=== PATIENT | female | born 1960 | race Caucasian/White ===

== ENCOUNTER 2018-02-02 12:11 | Inpatient (IN) ==
[2018-02-02] MEDS ORDERED: Morphine Sulfate Inj 2 MG/ML Vial IV.PUSH ONE (15:20)
[2018-02-02] MEDS ORDERED: Morphine Inj 4 MG/ML Vial ONE (15:35)
[2018-02-02] MEDS ORDERED: Morphine Inj 4 MG/ML Vial IV.PUSH ONE (15:46)
--- NOTE | 2018-02-02 15:50 | ED ---
HPI General Chief Complaint: Back Pain/Injury Stated Complaint: pelvic pain/post op Time Seen by Provider: 02/02/18 15:14 History of Present Illness HPI Narrative: Patient presents to the emergency department status post fall in her kitchen 5 months ago. States that she could not walk last week and went to [facility] CT scan showed a pelvic fracture and ovarian mass. Ovarian mass was removed last week but stated that she still could not walk. Advised the physician of her hospital that she could not walk with a discharge her in a way per patient. She is complaining of pain bilateral buttocks, 10 out of 10, constant, worse with sitting, no alleviating factors. She denies fever, chills , vomiting, but reports nausea. states ovarian mass was benign. Related Data Home Medications Medication Instructions Recorded Confirmed No Known Home Medications 02/02/18 02/02/18 Previous Rx's Medication Instructions Recorded bisacodyl [Bisac-Evac] 10 mg AL DAILY PRN #15 ea 02/04/18 hydrocodone-acetaminophen 2 tab PO Q4H PRN #40 tab 02/04/18 sennosides-docusate sodium [Senna 2 tab PO BID #120 tab 02/04/18 Plus] Allergies Allergy/AdvReac Type Severity Reaction Status Date / Time No Known Allergies Allergy Unverified 02/02/18 14:27 Review of Systems ROS Unobtainable All other systems reviewed negative except as stated in HPI [facility] Social History Social History Substance History: No History of Abuse Second Hand Smoke Exposure: No Smoking Status: Never smoker How Often Do You Have a Drink Containing Alcohol: Never Recent Travel in [facility] [[email or web address]] within the Last 8 Weeks: No Recent Out of Country Travel within the Last 8 Weeks: No Immunization History Tetanus Immunization: >5 Years Hx Influenza Vaccine This Season: No Exam Narrative Exam Narrative: GENERAL: No acute distress. SKIN: Focused skin assessment warm/dry. HEAD: Atraumatic. Normocephalic. EYES: Pupils equal and round. No scleral icterus. No injection or drainage. ENT: No nasal bleeding or discharge. Mucous membranes pink and moist. NECK: Trachea midline. No JVD. CARDIOVASCULAR: Regular rate and rhythm. No murmur appreciated. RESPIRATORY: No accessory muscle use. Clear to auscultation. Breath sounds equal bilaterally. GASTROINTESTINAL: Abdomen soft, non-tender, nondistended. Hepatic and splenic margins not palpable. MUSCULOSKELETAL: No obvious deformities. No clubbing. No cyanosis. No edema. Bilateral pelvic tenderness, difficulty moving lower extremities bilat secondary to pain but the patient can move her lower extremities. No focal C/T/ L-spine tenderness to palpation. NEUROLOGICAL: Awake and alert. No obvious cranial nerve deficits. Decreased bilateral lower extremity strength secondary to pain.. Normal speech. PSYCHIATRIC: Appropriate mood and affect; insight and judgment normal. Course Initial Documented Vital Signs Temperature 99.3 F 02/02/18 12:24 Pulse Rate 113 H 02/02/18 12:24 Respiratory Rate 16 02/02/18 12:24 Blood Pressure 140/75 02/02/18 12:24 Pulse Oximetry 97 02/02/18 12:24 Last Documented Vital Signs Temperature 98.0 F 02/04/18 23:43 Pulse Rate 80 02/04/18 23:43 Respiratory Rate 18 02/05/18 04:04 Blood Pressure 142/84 H 02/04/18 23:43 Pulse Oximetry 96 02/04/18 23:43 Medical Decision Making MDM Narrative Medical decision making narrative: Patient presents to the emergency department complaining of difficulty walking secondary to pelvic pain. States she was diagnosed with a pelvic fracture. Patient placed on library monitor, continuous pulse ox, IV access obtained. Pelvic x-ray, labs, 2 mg IV morphine ordered. 1816: Dr Costello, Ortho paged. Nothing to do for fractures currently as she wants to know more about ovarian mass (pathologic fracture?). Admit, get med records from [facility]. Differential Diagnosis Differential Diagnosis: Fracture, dislocation, arthritis, Lab Data Result diagrams: 02/04/18 06:53 02/04/18 06:53 Lab Results 02/02/18 02/02/18 02/02/18 Range/Units 15:30 15:40 16:40 WBC 6.5 (4.0-11.0) th/mm3 RBC 2.91 L (4.00-5.30) mil/mm3 Hgb 9.5 L (11.6-15.3) gm/dL Hct 28.5 L (35.0-46.0) % MCV 98.1 (80.0-100.0) fL MCH 32.6 (27.0-34.0) pg MCHC 33.3 (32.0-36.0) % RDW 15.5 (11.6-17.2) % Plt Count 409 (150-450) th/mm3 MPV 7.1 (7.0-11.0) fL Neut % (Auto) 78.4 H (16.0-70.0) % Lymph % (Auto) 12.4 (9.0-44.0) % Hayes % (Auto) 7.5 (0.0-8.0) % Eos % (Auto) 0.9 (0.0-4.0) % Baso % (Auto) 0.8 (0.0-2.0) % Neut # (Auto) 5.1 (1.8-7.7) th/mm3 Lymph # (Auto) 0.8 L (1.0-4.8) th/mm3 Hayes # (Auto) 0.5 (0.0-0.9) th/mm3 Eos # (Auto) 0.1 (0.0-0.4) th/mm3 Baso # (Auto) 0.0 (0.0-0.2) th/mm3 WBC Differential . Differential Comment Auto diff final PT (9.8-11.6) sec INR Ratio Sodium 140 (136-145) meq/L Potassium 3.7 (3.5-5.1) meq/L Chloride 104 (98-107) meq/L Carbon Dioxide 24.1 (21.0-32.0) meq/L Anion Gap 12 (5-15) meq/L BUN 10 (7-18) mg/dL Creatinine 0.35 L (0.50-1.00) mg/dL Estimated GFR Greater than 89 (>89) mL/min POC Glucose (68-110) mg/dl Random Glucose 75 (74-106) mg/dL Hemoglobin A1c (4.3-6.0) % Calcium 8.3 L (8.5-10.1) mg/dL Phosphorus (2.5-4.9) mg/dL Magnesium (1.5-2.5) mg/dL Total Bilirubin 0.6 (0.2-1.0) mg/dL AST 18 (15-37) U/L ALT 26 (10-53) U/L Alkaline Phosphatase 197 H (45-117) U/L Total Protein 5.9 L (6.4-8.2) g/dL Albumin 2.8 L (3.4-5.0) g/dL TSH (0.358-3.740) uIU/mL Free T4 (0.76-1.46) ng/dL Urine Color Rosalina (Yellw/Straw) Urine Clarity Clear (Clear) Urine pH 7.0 (5.0-8.5) Ur Specific [place] 1.012 (1.002-1.035) Urine Protein Negative (Neg-Trace) mg/dL Urine Glucose (UA) Negative (Negative) mg/dL Urine Ketones 20 (Negative) mg/dL Urine Occult Blood Negative (Negative) Urine Nitrate Negative (Negative) Urine Bilirubin Negative (Negative) Urine Urobilinogen Less than 2 (Less than 2) mg/dL Ur Leukocyte Esterase Negative (Negative) Urine RBC 1 (0-3) /hpf Urine WBC 2 (0-5) /hpf Ur Squamous Epith Cells 3 (0-5) /hpf Urine Bacteria Rare H (None) /hpf Urine Mucus Few H (Occasional) /lpf Micro UA Comment Culture not ind Urine Culture Comments Culture not ind 02/03/18 02/03/18 02/04/18 Range/Units 04:26 04:26 06:53 WBC 5.0 6.0 (4.0-11.0) th/mm3 RBC 2.66 L 2.72 L (4.00-5.30) mil/mm3 Hgb 8.5 L 8.9 L (11.6-15.3) gm/dL Hct 25.9 L 26.6 L (35.0-46.0) % MCV 97.3 98.0 (80.0-100.0) fL MCH 32.0 32.6 (27.0-34.0) pg MCHC 32.9 33.3 (32.0-36.0) % RDW 15.8 15.6 (11.6-17.2) % Plt Count 354 373 (150-450) th/mm3 MPV 6.6 L 6.9 L (7.0-11.0) fL Neut % (Auto) 61.0 62.8 (16.0-70.0) % Lymph % (Auto) 22.9 21.7 (9.0-44.0) % Hayes % (Auto) 10.4 H 8.8 H (0.0-8.0) % Eos % (Auto) 4.7 H 6.0 H (0.0-4.0) % Baso % (Auto) 1.0 0.7 (0.0-2.0) % Neut # (Auto) 3.0 3.8 (1.8-7.7) th/mm3 Lymph # (Auto) 1.1 1.3 (1.0-4.8) th/mm3 Hayes # (Auto) 0.5 0.5 (0.0-0.9) th/mm3 Eos # (Auto) 0.2 0.4 (0.0-0.4) th/mm3 Baso # (Auto) 0.0 0.0 (0.0-0.2) th/mm3 WBC Differential . . Differential Comment Auto diff final Auto diff final PT (9.8-11.6) sec INR Ratio Sodium 143 (136-145) meq/L Potassium 3.6 (3.5-5.1) meq/L Chloride 108 H (98-107) meq/L Carbon Dioxide 25.5 (21.0-32.0) meq/L Anion Gap 10 (5-15) meq/L BUN 16 (7-18) mg/dL Creatinine 0.44 L (0.50-1.00) mg/dL Estimated GFR Greater than 89 (>89) mL/min POC Glucose (68-110) mg/dl Random Glucose 114 H (74-106) mg/dL Hemoglobin A1c (4.3-6.0) % Calcium 8.4 L (8.5-10.1) mg/dL Phosphorus (2.5-4.9) mg/dL Magnesium (1.5-2.5) mg/dL Total Bilirubin 0.3 (0.2-1.0) mg/dL AST 15 (15-37) U/L ALT 21 (10-53) U/L Alkaline Phosphatase 183 H (45-117) U/L Total Protein 5.3 L D (6.4-8.2) g/dL Albumin 2.3 L (3.4-5.0) g/dL TSH (0.358-3.740) uIU/mL Free T4 (0.76-1.46) ng/dL Urine Color (Yellw/Straw) Urine Clarity (Clear) Urine pH (5.0-8.5) Ur Specific [place] (1.002-1.035) Urine Protein (Neg-Trace) mg/dL Urine Glucose (UA) (Negative) mg/dL Urine Ketones (Negative) mg/dL Urine Occult Blood (Negative) Urine Nitrate (Negative) Urine Bilirubin (Negative) Urine Urobilinogen (Less than 2) mg/dL Ur Leukocyte Esterase (Negative) Urine RBC (0-3) /hpf Urine WBC (0-5) /hpf Ur Squamous Epith Cells (0-5) /hpf Urine Bacteria (None) /hpf Urine Mucus (Occasional) /lpf Micro UA Comment Urine Culture Comments 02/04/18 02/04/18 02/04/18 Range/Units 06:53 06:53 06:53 WBC (4.0-11.0) th/mm3 RBC (4.00-5.30) mil/mm3 Hgb (11.6-15.3) gm/dL Hct (35.0-46.0) % MCV (80.0-100.0) fL MCH (27.0-34.0) pg MCHC (32.0-36.0) % RDW (11.6-17.2) % Plt Count (150-450) th/mm3 MPV (7.0-11.0) fL Neut % (Auto) (16.0-70.0) % Lymph % (Auto) (9.0-44.0) % Hayes % (Auto) (0.0-8.0) % Eos % (Auto) (0.0-4.0) % Baso % (Auto) (0.0-2.0) % Neut # (Auto) (1.8-7.7) th/mm3 Lymph # (Auto) (1.0-4.8) th/mm3 Hayes # (Auto) (0.0-0.9) th/mm3 Eos # (Auto) (0.0-0.4) th/mm3 Baso # (Auto) (0.0-0.2) th/mm3 WBC Differential Differential Comment PT 9.9 (9.8-11.6) sec INR 1.0 Ratio Sodium 143 (136-145) meq/L Potassium 3.7 (3.5-5.1) meq/L Chloride 108 H (98-107) meq/L Carbon Dioxide 26.1 (21.0-32.0) meq/L Anion Gap 9 (5-15) meq/L BUN 8 (7-18) mg/dL Creatinine 0.37 L (0.50-1.00) mg/dL Estimated GFR Greater than 89 (>89) mL/min POC Glucose (68-110) mg/dl Random Glucose 94 (74-106) mg/dL Hemoglobin A1c 4.2 L (4.3-6.0) % Calcium 8.3 L (8.5-10.1) mg/dL Phosphorus 4.2 (2.5-4.9) mg/dL Magnesium 1.8 (1.5-2.5) mg/dL Total Bilirubin 0.2 (0.2-1.0) mg/dL AST 14 L (15-37) U/L ALT 20 (10-53) U/L Alkaline Phosphatase 200 H (45-117) U/L Total Protein 5.4 L (6.4-8.2) g/dL Albumin 2.5 L (3.4-5.0) g/dL TSH 1.090 (0.358-3.740) uIU/mL Free T4 1.37 (0.76-1.46) ng/dL Urine Color (Yellw/Straw) Urine Clarity (Clear) Urine pH (5.0-8.5) Ur Specific [place] (1.002-1.035) Urine Protein (Neg-Trace) mg/dL Urine Glucose (UA) (Negative) mg/dL Urine Ketones (Negative) mg/dL Urine Occult Blood (Negative) Urine Nitrate (Negative) Urine Bilirubin (Negative) Urine Urobilinogen (Less than 2) mg/dL Ur Leukocyte Esterase (Negative) Urine RBC (0-3) /hpf Urine WBC (0-5) /hpf Ur Squamous Epith Cells (0-5) /hpf Urine Bacteria (None) /hpf Urine Mucus (Occasional) /lpf Micro UA Comment Urine Culture Comments 02/04/18 Range/Units 21:59 WBC (4.0-11.0) th/mm3 RBC (4.00-5.30) mil/mm3 Hgb (11.6-15.3) gm/dL Hct (35.0-46.0) % MCV (80.0-100.0) fL MCH (27.0-34.0) pg MCHC (32.0-36.0) % RDW (11.6-17.2) % Plt Count (150-450) th/mm3 MPV (7.0-11.0) fL Neut % (Auto) (16.0-70.0) % Lymph % (Auto) (9.0-44.0) % Hayes % (Auto) (0.0-8.0) % Eos % (Auto) (0.0-4.0) % Baso % (Auto) (0.0-2.0) % Neut # (Auto) (1.8-7.7) th/mm3 Lymph # (Auto) (1.0-4.8) th/mm3 Hayes # (Auto) (0.0-0.9) th/mm3 Eos # (Auto) (0.0-0.4) th/mm3 Baso # (Auto) (0.0-0.2) th/mm3 WBC Differential Differential Comment PT (9.8-11.6) sec INR Ratio Sodium (136-145) meq/L Potassium (3.5-5.1) meq/L Chloride (98-107) meq/L Carbon Dioxide (21.0-32.0) meq/L Anion Gap (5-15) meq/L BUN (7-18) mg/dL Creatinine (0.50-1.00) mg/dL Estimated GFR (>89) mL/min POC Glucose 206 H (68-110) mg/dl Random Glucose (74-106) mg/dL Hemoglobin A1c (4.3-6.0) % Calcium (8.5-10.1) mg/dL Phosphorus (2.5-4.9) mg/dL Magnesium (1.5-2.5) mg/dL Total Bilirubin (0.2-1.0) mg/dL AST (15-37) U/L ALT (10-53) U/L Alkaline Phosphatase (45-117) U/L Total Protein (6.4-8.2) g/dL Albumin (3.4-5.0) g/dL TSH (0.358-3.740) uIU/mL Free T4 (0.76-1.46) ng/dL Urine Color (Yellw/Straw) Urine Clarity (Clear) Urine pH (5.0-8.5) Ur Specific [place] (1.002-1.035) Urine Protein (Neg-Trace) mg/dL Urine Glucose (UA) (Negative) mg/dL Urine Ketones (Negative) mg/dL Urine Occult Blood (Negative) Urine Nitrate (Negative) Urine Bilirubin (Negative) Urine Urobilinogen (Less than 2) mg/dL Ur Leukocyte Esterase (Negative) Urine RBC (0-3) /hpf Urine WBC (0-5) /hpf Ur Squamous Epith Cells (0-5) /hpf Urine Bacteria (None) /hpf Urine Mucus (Occasional) /lpf Micro UA Comment Urine Culture Comments Imaging Data Radiologist's impression: ITS Impressions Pelvis X-Ray 02/02/18 15:21 CONCLUSION: Negative examination. Pelvis CT 02/02/18 17:08 CONCLUSION: 1. Probable subacute bilateral sacral fractures as well as comminuted displaced fractures of the left superior and inferior pubic rami with ossification of the adjacent soft tissues anteriorly. 2. Probable hematoma/seroma involving left iliacus muscle. 3. Enlarged fibroid uterus. Discharge Plan Discharge Disposition Patient Disposition: 30 Still Patient Discharge Condition Condition: Stable Discharge Order Discharge Orders: Discharge Order (Routine); Ordered 02/04/18 Ordered By: Suleman Broussard Discharge Details Anticipated Discharge Date: 02/04/18 Discharge Comment: DC TO HOME Discharge Problem: Closed pelvic fracture Physicians Team ED Provider: Breanne Sanchez Primary Care Provider: NON STAFF,PROVIDER Attending Provider: Winnie Mcgowan Other Providers: ; James Russ Status ED Status: Left Department Discharge Information Discharge Date/Time: 02/02/18 20:30
--- NOTE | 2018-02-02 15:55 | XR ---
EXAM DATE: 02/02/2018 3:46 PM EDT AGE/SEX: 57 years / Female INDICATIONS: Pain on right side from fall three months ago. CLINICAL DATA: This is the patient's initial encounter. Patient reports that signs and symptoms have been present for 3 months and indicates a pain score of 6/10. MEDICAL/SURGICAL HISTORY: None. None. COMPARISON: No prior exams available for comparison. FINDINGS: Examination of the pelvis demonstrates no evidence of fracture or dislocation. Bony mineralization i s normal. There is no widening of the sacroiliac joints. No foreign body is identified. CONCLUSION: Negative examination. Electronically signed by: Yvan Carlton MD 02/02/2018 3:54 PM EDT
[2018-02-02 16:26] LABS: Baso % (Auto) 0.8 % (0.0-2.0); Eos # (Auto) 0.1 th/mm3 (0.0-0.4); Eos % (Auto) 0.9 % (0.0-4.0); Hematocrit 28.5 % (35.0-46.0); Hemoglobin 9.5 gm/dL (11.6-15.3); Lymph # (Auto) 0.8 th/mm3 (1.0-4.8); Lymph % (Auto) 12.4 % (9.0-44.0); Mean Corpuscular HGB Conc 33.3 % (32.0-36.0); Mean Corpuscular Hemoglobin 32.6 pg (27.0-34.0); Mean Corpuscular Volume 98.1 fL (80.0-100.0); Mean Platelet Volume 7.1 fL (7.0-11.0); Mono # (Auto) 0.5 th/mm3 (0.0-0.9); Mono % (Auto) 7.5 % (0.0-8.0); Neut # (Auto) 5.1 th/mm3 (1.8-7.7); Neut % (Auto) 78.4 % (16.0-70.0); Platelet Count 409 th/mm3 (150-450); Red Blood Count 2.91 mil/mm3 (4.00-5.30); Red Cell Distribution Width 15.5 % (11.6-17.2); White Blood Count 6.5 th/mm3 (4.0-11.0)
[2018-02-02 17:45] LABS: Bacteria,Urine Rare /hpf; Bilirubin,Urine Negative (Negative); Clarity,Urine Clear (Clear); Color,Urine Amber (Yellw/Straw); Glucose,Urine (UA) Negative (Negative); Leukocyte Esterase,Urine Negative (Negative); Mucus,Urine Few /lpf (Occasional); Nitrite,Urine Negative (Negative); Specific Gravity,Urine 1.012 (1.002-1.035); Squamous Epithelial Cell,Urine 3 /hpf (0-5)
[2018-02-02 18:01] LABS: Anion Gap 12 meq/L (5-15); Carbon Dioxide 24.1 meq/L (21.0-32.0); Chloride 104 meq/L (98-107); Potassium 3.7 meq/L (3.5-5.1); Sodium 140 meq/L (136-145)
[2018-02-02 18:02] LABS: Alanine Aminotransferase 26 U/L (10-53); Albumin 2.8 g/dL (3.4-5.0); Alkaline Phosphatase 197 U/L (45-117); Aspartate Aminotransferase 18 U/L (15-37); Blood Urea Nitrogen 10 mg/dL (7-18); Calcium 8.3 mg/dL (8.5-10.1); Glomerular Filtration Rate Greater Than 89 mL/min (>89); Glucose,Random 75 mg/dL (74-106); Total Protein 5.9 g/dL (6.4-8.2)
[2018-02-02] MEDS ORDERED: Bisacodyl 10 MG Supp RECTAL PRN (18:59)
[2018-02-02] MEDS ORDERED: Acetaminophen 325 MG Tablet PO PRN (18:59)
[2018-02-02] MEDS ORDERED: Morphine Sulfate Inj 2 MG/ML Vial IM PRN (19:07)
[2018-02-02] MEDS ORDERED: Morphine Sulfate Inj 2 MG/ML Vial IV.PUSH PRN (19:13)
--- NOTE | 2018-02-02 19:31 | P.HPIM ---
History of Present Illness Primary Care Physician: PROVIDER NON STAFF History of Present Illness: This is a 57-year-old female with a PMH of Ovarian Mass s/p Resection who presented to the ER w/ complaints of inability to ambulate due to pelvic pain. States she is from [place], had fall in her kitchen approx 5mo ago however no obvious injury at that time and did not seek medical attention. Moved here to [facility] few days ago, now w/ progressive worsening of hip pain and inability to walk. Denies new injury or trauma. On arrival, BP 148/82, HR 100, O2 sat 100% RA, Afebrile. Hemoglobin 9.5, no previous labs for comparison. Chemistry essentially unremarkable. UA negative for UTI. Pelvis X-ray with no acute findings. Pelvis CT with probable subacute bilateral sacral fractures and comminuted displaced fractures of the left superior and inferior pubic rami, probable hematoma/seroma left iliopsoas muscle. Ortho consulted by ER physician , plan is for possible surgical intervention. - Diagnosis (1) Pelvic fracture (2) Anemia - Inpatient Certification If this patient has been admitted as an Inpatient: I certify that the inpatient services were ordered in accordance with Medicare regulations governing the order. This includes certification that hospital inpatient services are reasonable and necessary and in the case of services not specified as inpatient-only under 42 CFR 419.22(n), that they are appropriately provided as inpatient services in accordance to with the 2-midnight benchmark under 43 CFR 412.3(e) Estimated Total Length of Stay (Days): 2 Plans for Post Hospital Care: Not yet determined Review of Systems All other systems reviewed negative except as stated in HPI [facility] - History History Provided By: Patient - Medical History Medical History: Medical History (Last Updated 02/02/18 @ 14:32 by Miguel Hall RN) Ovarian mass, left Patient denies medical problems Patient denies medical problems - Surgical History Surgical History: Surgical History (Last Updated 02/02/18 @ 14:32 by Miguel Hall RN) Hx of tonsillectomy - Family History Family History: Family History (Last Updated 02/02/18 @ 14:33 by Miguel Hall RN) Other Patient denies significant medical history - Tobacco History Second Hand Smoke Exposure: No Smoking Status: Never smoker - Alcohol History How Often Do You Have a Drink Containing Alcohol: Never - Substance Use History Substance History: No History of Abuse - Travel History Recent Travel in the [place] Within the Last 8 Weeks: No Recent Travel Out of the Country Within the Last 8 Weeks: No - Immunization History Tetanus Immunization: >5 Years Hx Influenza Vaccine This Season: No Medications and Allergies Active Medications: Active Medications Acetaminophen (Tylenol) 650 mg PO Q4H PRN PRN Reason: PAIN/FEVER Hydrocodone Bitart/Acetaminophen (Evans 5/325) 1 tab PO Q4H PRN PRN Reason: PAIN 3-5 Al Hydroxide/Mg Hydroxide (Milk Of Magnesia Liq) 30 ml PO Q12H PRN PRN Reason: Mild Constipation Bisacodyl (Dulcolax Supp) 10 mg RECTAL DAILY PRN PRN Reason: SEVERE CONSITIPATION Hydromorphone HCl (Dilaudid Pf Inj) 1 mg IV.PUSH Q4H PRN PRN Reason: PAIN 6-10 Sodium Chloride (Ns Inj) 1,000 mls @ 100 mls/hr IV.CONT .Q10H BLAKE Lactulose (Lactulose Liq) 30 ml PO DAILY PRN PRN Reason: SEVERE CONSITIPATION Metoclopramide HCl (Reglan Inj) 5 mg IV.PUSH Q6HR PRN; Protocol PRN Reason: NAUSEA OR VOMITING Senna/Docusate Sodium (Mirna-Colace) 1 tab PO BID BLAKE Sennosides (Senokot) 17.2 mg PO Q12H PRN PRN Reason: Moderate Constipation Allergies Allergy/AdvReac Type Severity Reaction Status Date / Time No Known Allergies Allergy Unverified 02/02/18 14:27 Home Medications Medication Instructions Recorded Confirmed Type cyclobenzaprine 10 mg PO TID PRN 02/02/18 02/02/18 History oxycodone [OxyContin] 10 mg PO Q12H 02/02/18 02/02/18 History Exam Vital signs: Vital Signs 02/02/18 12:24 02/02/18 14:30 02/02/18 16:20 Temperature 99.3 F 98.0 F Pulse Rate 113 H 100 H Respiratory Rate 16 20 17 Blood Pressure 140/75 148/82 H Pulse Oximetry 97 100 02/02/18 17:11 Temperature 97.8 F Pulse Rate 82 Respiratory Rate 16 Blood Pressure 130/78 Pulse Oximetry 98 Intake & Output 02/02/18 02/02/18 02/03/18 06:59 18:59 06:59 Weight 45.3 kg Narrative: PE: GENERAL: Very pleasant middle-aged white female in no acute distress. Suitcase and belongings at bedside. HEENT: PERRLA, EOMI. No scleral icterus or conjunctival pallor. No lid lag or facial droop. CARDIOVASCULAR: Regular rate and rhythm. No obvious murmurs to auscultation. No chest tenderness to palpation. RESPIRATORY: No obvious rhonchi or wheezing. Clear to auscultation. Breath sounds equal bilaterally. GASTROINTESTINAL: Abdomen soft, non-tender, nondistended. BS normal. MUSCULOSKELETAL: Extremities without clubbing, cyanosis, or edema. No obvious deformities. Decreased ROM of bilateral lower extremities due to pain. NEUROLOGICAL: Awake, alert and oriented x4. No focal neurologic deficits. Moving both upper and lower extremities spontaneously. Results - Labs CBC & Chem 7: 02/02/18 15:30 02/02/18 16:40 Labs: Short CBC 02/02/18 Range/Units 15:30 WBC 6.5 (4.0-11.0) th/mm3 Hgb 9.5 L (11.6-15.3) gm/dL Hct 28.5 L (35.0-46.0) % Plt Count 409 (150-450) th/mm3 BMP 02/02/18 16:40 Sodium 140 Potassium 3.7 Chloride 104 Carbon Dioxide 24.1 BUN 10 Creatinine 0.35 L Calcium 8.3 L Liver Function 02/02/18 Range/Units 16:40 Total Bilirubin 0.6 (0.2-1.0) mg/dL AST 18 (15-37) U/L ALT 26 (10-53) U/L Alkaline Phosphatase 197 H (45-117) U/L Albumin 2.8 L (3.4-5.0) g/dL Urine 02/02/18 Range/Units 15:40 Urine Color Rosalina (Yellw/Straw) Urine Clarity Clear (Clear) Urine pH 7.0 (5.0-8.5) Ur Specific [place] 1.012 (1.002-1.035) Urine Protein Negative (Neg-Trace) mg/dL Urine Glucose (UA) Negative (Negative) mg/dL - Imaging Impressions Pelvis X-Ray 02/02/18 15:21 CONCLUSION: Negative examination. Pelvis CT 02/02/18 17:08 CONCLUSION: 1. Probable subacute bilateral sacral fractures as well as comminuted displaced fractures of the left superior and inferior pubic rami with ossification of the adjacent soft tissues anteriorly. 2. Probable hematoma/seroma involving left iliacus muscle. 3. Enlarged fibroid uterus. Caprini VTE Risk Assessment Caprini VTE Risk Assessment: No/Low Risk (score <= 1) Caprini Risk Assessment Model: Point Value = 1 Point Value = 2 Point Value = 3 Point Value = 5 Age 41-60 Minor surgery BMI > 25 kg/m2 Swollen legs Varicose veins or History of unexplained or recurrent spontaneous Oral contraceptives or hormone replacement Sepsis (< 1 month) Serious lung disease, including pneumonia (< 1 month) Abnormal pulmonary function Acute myocardial infarction Congestive heart failure (< 1 month) History of inflammatory bowel disease Medical patient at bed rest Age 61-74 Arthroscopic surgery Major open surgery (> 45 min) Laparoscopic surgery (> 45 min) Malignancy Confined to bed (> 72 hours) Immobilizing plaster cast Central venous access Age >= 75 History of VTE Family history of VTE Factor V Leiden Prothrombin [id number] Lupus anticoagulant Anticardiolipin antibodies Elevated serum homocysteine Heparin-induced thrombocytopenia Other congenital or acquired thrombophilia Stroke (< 1 month) Elective arthroplasty Hip, pelvis, or leg fracture Acute spinal cord injury (< 1 month) Prophylaxis Regimen: Total Risk Factor Score Risk Level Prophylaxis Regimen 0-1 Low Early ambulation 2 Moderate Order ONE of the following: *Sequential Compression Device (SCD) *Heparin 5000 units SQ BID 3-4 Higher Order ONE of the following medications: *Heparin 5000 units SQ TID *Enoxaparin/Lovenox 40 mg SQ daily (WT < 150 kg, CrCl > 30 mL/min) *Enoxaparin/Lovenox 30 mg SQ daily (WT < 150 kg, CrCl > 10-29 mL/min) *Enoxaparin/Lovenox 30 mg SQ BID (WT < 150 kg, CrCl > 30 mL/min) AND/OR *Sequential Compression Device (SCD) 5 or more Highest Order ONE of the following medications: *Heparin 5000 units SQ TID (Preferred with Epidurals) *Enoxaparin/Lovenox 40 mg SQ daily (WT < 150 kg, CrCl > 30 mL/min) *Enoxaparin/Lovenox 30 mg SQ daily (WT < 150 kg, CrCl > 10-29 mL/min) *Enoxaparin/Lovenox 30 mg SQ BID (WT < 150 kg, CrCl > 30 mL/min) AND *Sequential Compression Device (SCD) Assessment and Plan - Assessment (1) Pelvic fracture Code(s): S32.9XXA - Fracture of unspecified parts of lumbosacral spine and pelvis, initial encounter for closed fracture Status: Acute (2) Anemia Code(s): D64.9 - Anemia, unspecified Status: Acute - Plan A/P: 1. Pelvic Fracture: S/p fall approx 5mo ago w/ increased pain and difficulty w / ambulation. Pelvic X-ray w/ no acute findings, CT Pelvis w/ probable subacute bilateral sacral fractures and comminuted displaced fracture of left superior and inferior pubic rami, probable hematoma/seroma of left iliopsoas muscle. Ortho consulted by ER physician, will evaluate for possible intervention. NPO after midnight, analgesics/antiemetics as needed. PT for eval/tx 2. Anemia: Hgb 9.5, no previous labs for comparison, no active bleeding. Monitor closely. Repeat labs in am. 3. DVT Prophylaxis: Anticoagulation post op 4. Social work for dc planning as needed. 5. Case discussed w/ ER physician at length, labs/records/imaging reviewed by me.
[2018-02-02] MEDS: Senna/Docusate Sodium 8.6/50 MG Tablet PO SCH (21:03)
[2018-02-02] MEDS: Sod Chloride 0.9% Inj 1,000 ML IV.CONT SCH (21:11)
[2018-02-03 04:59] LABS: Eos # (Auto) 0.2 th/mm3 (0.0-0.4); Eos % (Auto) 4.7 % (0.0-4.0); Hematocrit 25.9 % (35.0-46.0); Hemoglobin 8.5 gm/dL (11.6-15.3); Lymph # (Auto) 1.1 th/mm3 (1.0-4.8); Lymph % (Auto) 22.9 % (9.0-44.0); Mean Corpuscular HGB Conc 32.9 % (32.0-36.0); Mean Corpuscular Volume 97.3 fL (80.0-100.0); Mean Platelet Volume 6.6 fL (7.0-11.0); Mono # (Auto) 0.5 th/mm3 (0.0-0.9); Mono % (Auto) 10.4 % (0.0-8.0); Platelet Count 354 th/mm3 (150-450); Red Blood Count 2.66 mil/mm3 (4.00-5.30); Red Cell Distribution Width 15.8 % (11.6-17.2)
[2018-02-03 05:19] LABS: Albumin 2.3 g/dL (3.4-5.0); Anion Gap 10 meq/L (5-15); Aspartate Aminotransferase 15 U/L (15-37); Blood Urea Nitrogen 16 mg/dL (7-18); Calcium 8.4 mg/dL (8.5-10.1); Carbon Dioxide 25.5 meq/L (21.0-32.0); Chloride 108 meq/L (98-107); Glomerular Filtration Rate Greater Than 89 mL/min (>89); Glucose,Random 114 mg/dL (74-106); Potassium 3.6 meq/L (3.5-5.1); Sodium 143 meq/L (136-145)
[2018-02-03 05:21] LABS: Alanine Aminotransferase 21 U/L (10-53)
[2018-02-03 05:23] LABS: Alkaline Phosphatase 183 U/L (45-117); Total Protein 5.3 g/dL (6.4-8.2)
[2018-02-03] MEDS: Senna/Docusate Sodium 8.6/50 MG Tablet PO SCH ×2 (08:09→21:14)
[2018-02-03] MEDS: HYDROmorphone PF Inj 2 MG/ML Vial IV.PUSH PRN ×3 (09:35→21:24)
--- NOTE | 2018-02-03 11:29 | P.CONOP ---
[facility] Orthopedics Consult Note - [facility] Consult date: 02/03/18 Consult reason: joint pain Chief complaint: PELVIC FRACTURES Narrative: This is a 57-year-old female with a PMH of Ovarian Mass s/p Resection who presented to the ER w/ complaints of inability to ambulate due to pelvic pain. States she is from [place], had fall in her kitchen approx 5mo ago however no obvious injury at that time and did not seek medical attention. Moved here to [facility] few days ago, now w/ progressive worsening of hip pain and inability to walk. Denies new injury or trauma. On arrival, BP 148/82, HR 100, O2 sat 100% RA, Afebrile. Hemoglobin 9.5, no previous labs for comparison. Pelvis X-ray with no acute findings. Pelvis CT with probable subacute left sacral fractures and comminuted displaced fractures of the left superior and inferior pubic rami. Of note, patient was seen at [facility] last week and diagnosed with subacute pelvic fractures and seen by orthopedist there. Recommendation was for weightbearing as tolerated with outpatient follow-up. In addition, she had her ovarian mass removed which appears to have been nonmalignant. Of note, the orthopedic note from [facility] also makes mention of patient's alcohol abuse and possibility of a fall that may not have been remembered. Review of Systems Denies fevers, chills, nausea, vomiting, chest pain, throat pain, abdominal pain , weakness, numbness or tingling, revision, cough, urinary incontinence, anxiety , rash. Reports pelvis pain with ambulation. PMFSH - History History Provided By: Patient - Medical History Medical History: Medical History (Last Reviewed 02/02/18 @ 21:07 by OG Ziegler) Endometriosis Ovarian mass, left Patient denies medical problems Patient denies medical problems Polycystic disease, ovaries - Surgical History Surgical History: Surgical History (Last Updated 02/02/18 @ 14:32 by Miguel Hall RN) Hx of tonsillectomy - Family History Family History: Family History (Last Updated 02/02/18 @ 14:33 by Miguel Hall RN) Other Patient denies significant medical history - Tobacco History Second Hand Smoke Exposure: No Smoking Status: Never smoker - Alcohol History How Often Do You Have a Drink Containing Alcohol: Never - Substance Use History Substance History: No History of Abuse - Travel History Recent Travel in the [place] Within the Last 8 Weeks: No Recent Travel Out of the Country Within the Last 8 Weeks: No - Immunization History Tetanus Immunization: >5 Years Hx Influenza Vaccine This Season: No Medications and Allergies Active Medications: Active Medications Acetaminophen (Tylenol) 650 mg PO Q4H PRN PRN Reason: FEVER/PAIN 1-2 Hydrocodone Bitart/Acetaminophen ([place] 5/325) 1 tab PO Q4H PRN PRN Reason: PAIN 3-5 Last Admin: 02/03/18 08:07 Dose: 1 tab Al Hydroxide/Mg Hydroxide (Milk Of Magnesia Liq) 30 ml PO Q12H PRN PRN Reason: Mild Constipation Bisacodyl (Dulcolax Supp) 10 mg RECTAL DAILY PRN PRN Reason: SEVERE CONSITIPATION Hydromorphone HCl (Dilaudid Pf Inj) 1 mg IV.PUSH Q4H PRN PRN Reason: PAIN 6-10 Last Admin: 02/03/18 09:35 Dose: 1 mg Sodium Chloride (Ns Inj) 1,000 mls @ 100 mls/hr IV.CONT .Q10H [facility] Last Admin: 02/02/18 21:11 Dose: 100 mls/hr Lactulose (Lactulose Liq) 30 ml PO DAILY PRN PRN Reason: SEVERE CONSITIPATION Metoclopramide HCl (Reglan Inj) 5 mg IV.PUSH Q6HR PRN; Protocol PRN Reason: NAUSEA OR VOMITING Senna/Docusate Sodium (Mirna-Colace) 1 tab PO BID [facility] Last Admin: 02/03/18 08:09 Dose: 1 tab Sennosides (Senokot) 17.2 mg PO Q12H PRN PRN Reason: Moderate Constipation Allergies Allergy/AdvReac Type Severity Reaction Status Date / Time No Known Allergies Allergy Unverified 02/02/18 14:27 Home Medications Medication Instructions Recorded Confirmed Type No Known Home Medications 02/02/18 02/02/18 History Exam Vital signs: Vital Signs 02/02/18 12:24 02/02/18 14:30 02/02/18 16:20 Temperature 99.3 F 98.0 F Pulse Rate 113 H 100 H Respiratory Rate 16 20 17 Blood Pressure 140/75 148/82 H Pulse Oximetry 97 100 02/02/18 17:11 02/02/18 20:50 02/03/18 00:00 Temperature 97.8 F 98.8 F 99.4 F Pulse Rate 82 104 H 108 H Respiratory Rate 16 18 18 Blood Pressure 130/78 155/82 H 101/54 L Pulse Oximetry 98 94 L 93 L 02/03/18 00:31 02/03/18 04:00 02/03/18 04:06 Temperature 99.0 F Pulse Rate 93 H Respiratory Rate 18 18 18 Blood Pressure 117/58 L Pulse Oximetry 94 L 02/03/18 05:59 02/03/18 08:00 Temperature 98.6 F Pulse Rate 84 Respiratory Rate 18 17 Blood Pressure 141/67 H Pulse Oximetry Intake & Output 02/02/18 02/03/18 02/03/18 18:59 06:59 18:59 Weight 45.3 kg 45.3 kg Other: # Voids 2 Date of Last Bowel Movement 02/02/18 02/02/18 Narrative: Awake, alert, in no distress Normocephalic Pupils equal No JVD Moist mucous membranes Soft nontender abdomen Nonlabored respirations Regular rate Bilateral lower extremities: Negative log roll. Patient does have mild pelvic pain with full passive range of motion of the hip. No tenderness to palpation or visible deformities distally. Neurovascularly intact distally. Brisk cap refill. Bilateral upper extremities: No tenderness to patient visible deformities. Full active range of motion and strength throughout. Sensation intact. Brisk cap refill. No rash Normal affect Results - Labs Result Diagrams: 02/03/18 04:26 02/03/18 04:26 Labs: Laboratory Results - last 24 hr 02/02/18 02/02/18 02/02/18 15:30 15:40 16:40 WBC 6.5 RBC 2.91 L Hgb 9.5 L Hct 28.5 L MCV 98.1 MCH 32.6 MCHC 33.3 RDW 15.5 Plt Count 409 MPV 7.1 Neut % (Auto) 78.4 H Lymph % (Auto) 12.4 [place] % (Auto) 7.5 Eos % (Auto) 0.9 Baso % (Auto) 0.8 Neut # (Auto) 5.1 Lymph # (Auto) 0.8 L [place] # (Auto) 0.5 Eos # (Auto) 0.1 Baso # (Auto) 0.0 WBC Differential . Differential Comment Auto diff final Sodium 140 Potassium 3.7 Chloride 104 Carbon Dioxide 24.1 Anion Gap 12 BUN 10 Creatinine 0.35 L Estimated GFR Greater than 89 Random Glucose 75 Calcium 8.3 L Total Bilirubin 0.6 AST 18 ALT 26 Alkaline Phosphatase 197 H Total Protein 5.9 L Albumin 2.8 L Urine Color [place] Urine Clarity Clear Urine pH 7.0 Ur Specific [place] 1.012 Urine Protein Negative Urine Glucose (UA) Negative Urine Ketones 20 Urine Occult Blood Negative Urine Nitrate Negative Urine Bilirubin Negative Urine Urobilinogen Less than 2 Ur Leukocyte Esterase Negative Urine RBC 1 Urine WBC 2 Ur Squamous Epith Cells 3 Urine Bacteria Rare H Urine Mucus Few H Micro UA Comment Culture not ind Urine Culture Comments Culture not ind 02/03/18 02/03/18 04:26 04:26 WBC 5.0 RBC 2.66 L Hgb 8.5 L Hct 25.9 L MCV 97.3 MCH 32.0 MCHC 32.9 RDW 15.8 Plt Count 354 MPV 6.6 L Neut % (Auto) 61.0 Lymph % (Auto) 22.9 [place] % (Auto) 10.4 H Eos % (Auto) 4.7 H Baso % (Auto) 1.0 Neut # (Auto) 3.0 Lymph # (Auto) 1.1 [place] # (Auto) 0.5 Eos # (Auto) 0.2 Baso # (Auto) 0.0 WBC Differential . Differential Comment Auto diff final Sodium 143 Potassium 3.6 Chloride 108 H Carbon Dioxide 25.5 Anion Gap 10 BUN 16 Creatinine 0.44 L Estimated GFR Greater than 89 Random Glucose 114 H Calcium 8.4 L Total Bilirubin 0.3 AST 15 ALT 21 Alkaline Phosphatase 183 H Total Protein 5.3 L D Albumin 2.3 L Urine Color Urine Clarity Urine pH Ur Specific [place] Urine Protein Urine Glucose (UA) Urine Ketones Urine Occult Blood Urine Nitrate Urine Bilirubin Urine Urobilinogen Ur Leukocyte Esterase Urine RBC Urine WBC Ur Squamous Epith Cells Urine Bacteria Urine Mucus Micro UA Comment Urine Culture Comments - Diagnostic results Imaging: Impressions Pelvis X-Ray 02/02/18 15:21 CONCLUSION: Negative examination. Pelvis CT 02/02/18 17:08 CONCLUSION: 1. Probable subacute bilateral sacral fractures as well as comminuted displaced fractures of the left superior and inferior pubic rami with ossification of the adjacent soft tissues anteriorly. 2. Probable hematoma/seroma involving left iliacus muscle. 3. Enlarged fibroid uterus. Assessment and Plan - Assessment and Plan 57-year-old female with subacute pelvic fractures without recent injury Diagnoses and treatment options discussed with the patient. I discussed with the patient that based on her CT, there does appear to be some evidence of healing occurring although slowly. These do not appear to be acute fractures. Most often these fractures can be treated nonoperatively. I do agree with the orthopedic surgeon at [facility] who recommended weightbearing as tolerated with walker. I encouraged the patient to mobilize with physical therapy. No plan for orthopedic surgery at this point. Patient may require placement depending on progress with therapy. Patient to follow-up in my office in 2 weeks.
--- NOTE | 2018-02-03 12:47 | P.PNIM ---
Subjective Interval history: This is a 57-year-old female with a PMH of Ovarian Mass s/p Resection who presented to the ER w/ complaints of inability to ambulate due to pelvic pain. States she is from [place], had fall in her kitchen approx 5mo ago however no obvious injury at that time and did not seek medical attention. Moved here to [facility] few days ago, now w/ progressive worsening of hip pain and inability to walk. Denies new injury or trauma. On arrival, BP 148/82, HR 100, O2 sat 100% RA, Afebrile. Hemoglobin 9.5, no previous labs for comparison. Chemistry essentially unremarkable. UA negative for UTI. Pelvis X-ray with no acute findings. Pelvis CT with probable subacute bilateral sacral fractures and comminuted displaced fractures of the left superior and inferior pubic rami, probable hematoma/seroma left iliopsoas muscle. Ortho consulted by ER physician , plan is for possible surgical intervention. 7-2 PATIENT STILL COMPLAINING OF PAIN ASKING FOR DILAUDID DW RN AND PT AND CM NEEDS PT AND OT ADJUST PAIN MEDS Physical Exam Vital signs: Vital Signs 02/02/18 14:30 02/02/18 16:20 02/02/18 17:11 Temperature 98.0 F 97.8 F Pulse Rate 100 H 82 Respiratory Rate 20 17 16 Blood Pressure 148/82 H 130/78 Pulse Oximetry 100 98 02/02/18 20:50 02/03/18 00:00 02/03/18 00:31 Temperature 98.8 F 99.4 F Pulse Rate 104 H 108 H Respiratory Rate 18 18 18 Blood Pressure 155/82 H 101/54 L Pulse Oximetry 94 L 93 L 02/03/18 04:00 02/03/18 04:06 02/03/18 05:59 Temperature 99.0 F Pulse Rate 93 H Respiratory Rate 18 18 18 Blood Pressure 117/58 L Pulse Oximetry 94 L 02/03/18 08:00 Temperature 98.6 F Pulse Rate 84 Respiratory Rate 17 Blood Pressure 141/67 H Pulse Oximetry Intake & Output 02/02/18 02/03/18 02/03/18 18:59 06:59 18:59 Weight 45.3 kg 45.3 kg Other: # Voids 2 Date of Last Bowel Movement 02/02/18 02/02/18 Narrative: GENERAL: Alert and oriented 3 talkative and cooperative asked for Dilaudid by name SKIN: Warm and dry. HEAD: Atraumatic. Normocephalic. EYES: Pupils equal and round. No scleral icterus. No injection or drainage. ENT: No nasal bleeding or discharge. Mucous membranes pink and moist. NECK: Trachea midline. No JVD. CARDIOVASCULAR: Regular rate and rhythm. S1-S2 no S3 or S4 RESPIRATORY: No accessory muscle use. Clear to auscultation. Breath sounds equal bilaterally. GASTROINTESTINAL: Abdomen soft, non-tender, nondistended. Hepatic and splenic margins not palpable. MUSCULOSKELETAL: Extremities without clubbing, cyanosis, or edema. No obvious deformities. NEUROLOGICAL: Awake and alert. No obvious cranial nerve deficits. Motor grossly within normal limits. 4 out of 5 muscle strength in the arms and decreased and bilateral legs. Normal speech. PSYCHIATRIC: Appropriate mood and affect; insight and judgment normal. Results - Labs CBC & Chem 7: 02/03/18 04:26 02/03/18 04:26 Laboratory Results - last 24 hr 02/02/18 02/02/18 02/02/18 15:30 15:40 16:40 WBC 6.5 RBC 2.91 L Hgb 9.5 L Hct 28.5 L MCV 98.1 MCH 32.6 MCHC 33.3 RDW 15.5 Plt Count 409 MPV 7.1 Neut % (Auto) 78.4 H Lymph % (Auto) 12.4 [place] % (Auto) 7.5 Eos % (Auto) 0.9 Baso % (Auto) 0.8 Neut # (Auto) 5.1 Lymph # (Auto) 0.8 L [place] # (Auto) 0.5 Eos # (Auto) 0.1 Baso # (Auto) 0.0 WBC Differential . Differential Comment Auto diff final Sodium 140 Potassium 3.7 Chloride 104 Carbon Dioxide 24.1 Anion Gap 12 BUN 10 Creatinine 0.35 L Estimated GFR Greater than 89 Random Glucose 75 Calcium 8.3 L Total Bilirubin 0.6 AST 18 ALT 26 Alkaline Phosphatase 197 H Total Protein 5.9 L Albumin 2.8 L Urine Color Rosalina Urine Clarity Clear Urine pH 7.0 Ur Specific [place] 1.012 Urine Protein Negative Urine Glucose (UA) Negative Urine Ketones 20 Urine Occult Blood Negative Urine Nitrate Negative Urine Bilirubin Negative Urine Urobilinogen Less than 2 Ur Leukocyte Esterase Negative Urine RBC 1 Urine WBC 2 Ur Squamous Epith Cells 3 Urine Bacteria Rare H Urine Mucus Few H Micro UA Comment Culture not ind Urine Culture Comments Culture not ind 02/03/18 02/03/18 04:26 04:26 WBC 5.0 RBC 2.66 L Hgb 8.5 L Hct 25.9 L MCV 97.3 MCH 32.0 MCHC 32.9 RDW 15.8 Plt Count 354 MPV 6.6 L Neut % (Auto) 61.0 Lymph % (Auto) 22.9 [place] % (Auto) 10.4 H Eos % (Auto) 4.7 H Baso % (Auto) 1.0 Neut # (Auto) 3.0 Lymph # (Auto) 1.1 [place] # (Auto) 0.5 Eos # (Auto) 0.2 Baso # (Auto) 0.0 WBC Differential . Differential Comment Auto diff final Sodium 143 Potassium 3.6 Chloride 108 H Carbon Dioxide 25.5 Anion Gap 10 BUN 16 Creatinine 0.44 L Estimated GFR Greater than 89 Random Glucose 114 H Calcium 8.4 L Total Bilirubin 0.3 AST 15 ALT 21 Alkaline Phosphatase 183 H Total Protein 5.3 L D Albumin 2.3 L Urine Color Urine Clarity Urine pH Ur Specific [place] Urine Protein Urine Glucose (UA) Urine Ketones Urine Occult Blood Urine Nitrate Urine Bilirubin Urine Urobilinogen Ur Leukocyte Esterase Urine RBC Urine WBC Ur Squamous Epith Cells Urine Bacteria Urine Mucus Micro UA Comment Urine Culture Comments - Imaging Impressions Pelvis X-Ray 02/02/18 15:21 CONCLUSION: Negative examination. Pelvis CT 02/02/18 17:08 CONCLUSION: 1. Probable subacute bilateral sacral fractures as well as comminuted displaced fractures of the left superior and inferior pubic rami with ossification of the adjacent soft tissues anteriorly. 2. Probable hematoma/seroma involving left iliacus muscle. 3. Enlarged fibroid uterus. - Procedures None Assessment and Plan - Assessment (1) Pelvic fracture Code(s): S32.9XXA - Fracture of unspecified parts of lumbosacral spine and pelvis, initial encounter for closed fracture Status: Acute (2) Anemia Code(s): D64.9 - Anemia, unspecified Status: Acute - Plan 1. Pelvic Fracture: S/p fall approx 5mo ago w/ increased pain and difficulty w / ambulation. Pelvic X-ray w/ no acute findings, CT Pelvis w/ probable subacute bilateral sacral fractures and comminuted displaced fracture of left superior and inferior pubic rami, probable hematoma/seroma of left iliopsoas muscle. Ortho consulted by ER physician, will evaluate for possible intervention. NPO after midnight, analgesics/antiemetics as needed. PT for eval/tx 2. Anemia: Hgb 9.5, no previous labs for comparison, no active bleeding. Monitor closely. Repeat labs in am. 3. DVT Prophylaxis: Anticoagulation post op We will consult physical therapy and Occupational Therapy Pain control A.m. labs Code Status: Full code Discussed Condition With: Discussed with RN and patient and case management Discharge Planning: Will probably need outpatient physical therapy and occupational therapy and pain control Progress Note: Quality - VTE Deep Vein Thrombosis/Pulmonary Embolism Present on Admission: No
--- NOTE | 2018-02-03 14:56 | P.DIET ---
Nutritional Evaluation Type of nutrition evaluation: initial Nutrition screening: Weight Loss > 10 lbs Subjective Subjective Comments: Pt reports a good appetite. She also reports unplanned wt loss due to stress. Objective - Diagnosis Fracture, Arthritis - Indications of Malnutrition Classification: Chronic disease or injury-related Malnutrition Characteristics: Weight loss - Objective Body Weight Used for Calculations: IBW Energy Needs - Lower Range (kCal/kg): 33 Energy Needs - Upper Range (kCal/kg): 38 Lower Limit kCal/kg (kCals): 1,799 Upper Limit kCal/kg (kCals): 2,071 Lower Limit Protein Factor (Grams per Kg): 1.1 Upper Limit Protein Factor (Grams per Kg): 1.5 Lower Protein Needs (Protein): 60 Upper Protein Needs (Protein): 82 Fluid Factor (ml/kg): 35 Estimated Fluid Needs (ml): 1,098 Dietitian Reviewed in Medical Record: Current diet, Curent medications, Intake & Output, Labs, Medical history Oral Diet Intake Amount: Excellent 90%+ Objective Comments: Pt's nutritional needs based on IBW (54.5kg). No actual wt available. PMH: Ovarian Mass s/p Resection Labs include: Hgb 8.5, Hct 25.9, Glu 114, Alk Phos 183 Assessment Assessment: Pt at nutritional risk r/t dx, recent wt loss. Need an actual wt to better assess pt. Estimated nutritional needs of pt as assessed above. Her po intake since admission has been 100%. Will provide her with Enlive tid, each bottle contains 350 kcals and 20 gms protein. Will monitor po intake, wt. Recommendations: Regular diet Will add Enlive tid Monitor po intake for adequacy. Dietitian to Monitor: Lab values, Supplement acceptance, Intake & Output, Weight change, PO Intake
[2018-02-04 08:09] LABS: Baso % (Auto) 0.7 % (0.0-2.0); Eos # (Auto) 0.4 th/mm3 (0.0-0.4); Hematocrit 26.6 % (35.0-46.0); Hemoglobin 8.9 gm/dL (11.6-15.3); Lymph # (Auto) 1.3 th/mm3 (1.0-4.8); Lymph % (Auto) 21.7 % (9.0-44.0); Mean Corpuscular HGB Conc 33.3 % (32.0-36.0); Mean Corpuscular Hemoglobin 32.6 pg (27.0-34.0); Mean Platelet Volume 6.9 fL (7.0-11.0); Mono # (Auto) 0.5 th/mm3 (0.0-0.9); Mono % (Auto) 8.8 % (0.0-8.0); Neut # (Auto) 3.8 th/mm3 (1.8-7.7); Neut % (Auto) 62.8 % (16.0-70.0); Platelet Count 373 th/mm3 (150-450); Red Blood Count 2.72 mil/mm3 (4.00-5.30); Red Cell Distribution Width 15.6 % (11.6-17.2)
[2018-02-04 08:11] LABS: Prothrombin Time 9.9 sec (9.8-11.6)
[2018-02-04 08:25] LABS: Alanine Aminotransferase 20 U/L (10-53); Albumin 2.5 g/dL (3.4-5.0); Anion Gap 9 meq/L (5-15); Aspartate Aminotransferase 14 U/L (15-37); Blood Urea Nitrogen 8 mg/dL (7-18); Calcium 8.3 mg/dL (8.5-10.1); Carbon Dioxide 26.1 meq/L (21.0-32.0); Chloride 108 meq/L (98-107); Glomerular Filtration Rate Greater Than 89 mL/min (>89); Glucose,Random 94 mg/dL (74-106); Magnesium 1.8 mg/dL (1.5-2.5); Potassium 3.7 meq/L (3.5-5.1); Sodium 143 meq/L (136-145)
[2018-02-04 08:34] LABS: Alkaline Phosphatase 200 U/L (45-117); Free T4 (Free Thyroxine) 1.37 ng/dL (0.76-1.46); Phosphorus 4.2 mg/dL (2.5-4.9); Total Protein 5.4 g/dL (6.4-8.2)
[2018-02-04] MEDS: Senna/Docusate Sodium 8.6/50 MG Tablet PO SCH ×2 (08:43→21:55)
[2018-02-04] MEDS: Sod Chloride 0.9% Inj 1,000 ML IV.CONT SCH (11:20)
--- NOTE | 2018-02-04 12:16 | P.PNIM ---
Subjective Interval history: This is a 57-year-old female with a PMH of Ovarian Mass s/p Resection who presented to the ER w/ complaints of inability to ambulate due to pelvic pain. States she is from [place], had fall in her kitchen approx 5mo ago however no obvious injury at that time and did not seek medical attention. Moved here to [facility] few days ago, now w/ progressive worsening of hip pain and inability to walk. Denies new injury or trauma. On arrival, BP 148/82, HR 100, O2 sat 100% RA, Afebrile. Hemoglobin 9.5, no previous labs for comparison. Chemistry essentially unremarkable. UA negative for UTI. Pelvis X-ray with no acute findings. Pelvis CT with probable subacute bilateral sacral fractures and comminuted displaced fractures of the left superior and inferior pubic rami, probable hematoma/seroma left iliopsoas muscle. Ortho consulted by ER physician , plan is for possible surgical intervention. 7-2 PATIENT STILL COMPLAINING OF PAIN ASKING FOR DILAUDID DW RN AND PT AND CM NEEDS PT AND OT ADJUST PAIN MEDS 7-3 TOLERATING PO PAIN MEDS DW RN AND PT HAS FRONT WHEELED WALKER CAN HAVE Physical Exam Vital signs: Vital Signs 02/03/18 12:55 02/03/18 16:21 02/03/18 20:00 Temperature 98.6 F 98.5 F Pulse Rate 87 85 Respiratory Rate 20 20 16 Blood Pressure 139/74 142/67 H Pulse Oximetry 97 98 02/04/18 00:00 02/04/18 04:00 Temperature 98.4 F 98.4 F Pulse Rate 87 87 Respiratory Rate 16 16 Blood Pressure 165/81 H Pulse Oximetry 96 Intake & Output 02/03/18 02/04/18 02/04/18 18:59 06:59 18:59 Intake Total 480 / 480 1000 / 1000 Balance 480 / 480 1000 / 1000 Intake: IV 1000 / 1000 NS Inj 1,000 ML @ 100 mls/hr IV 1000 / 1000 .CONT .Q10H [facility] Rx#:[id number] Oral 480 / 480 Other: # Voids 3 Date of Last Bowel Movement 02/02/18 02/02/18 Narrative: GENERAL: Alert and oriented 3 talkative and cooperative asked for Dilaudid by name SKIN: Warm and dry. HEAD: Atraumatic. Normocephalic. EYES: Pupils equal and round. No scleral icterus. No injection or drainage. ENT: No nasal bleeding or discharge. Mucous membranes pink and moist. NECK: Trachea midline. No JVD. CARDIOVASCULAR: Regular rate and rhythm. S1-S2 no S3 or S4 RESPIRATORY: No accessory muscle use. Clear to auscultation. Breath sounds equal bilaterally. GASTROINTESTINAL: Abdomen soft, non-tender, nondistended. Hepatic and splenic margins not palpable. MUSCULOSKELETAL: Extremities without clubbing, cyanosis, or edema. No obvious deformities. NEUROLOGICAL: Awake and alert. No obvious cranial nerve deficits. Motor grossly within normal limits. 4 out of 5 muscle strength in the arms and decreased and bilateral legs. Normal speech. PSYCHIATRIC: Appropriate mood and affect; insight and judgment normal. Results - Labs CBC & Chem 7: 02/04/18 06:53 02/04/18 06:53 Laboratory Results - last 24 hr 02/04/18 02/04/18 02/04/18 06:53 06:53 06:53 WBC 6.0 RBC 2.72 L Hgb 8.9 L Hct 26.6 L MCV 98.0 MCH 32.6 MCHC 33.3 RDW 15.6 Plt Count 373 MPV 6.9 L Neut % (Auto) 62.8 Lymph % (Auto) 21.7 [place] % (Auto) 8.8 H Eos % (Auto) 6.0 H Baso % (Auto) 0.7 Neut # (Auto) 3.8 Lymph # (Auto) 1.3 [place] # (Auto) 0.5 Eos # (Auto) 0.4 Baso # (Auto) 0.0 WBC Differential . Differential Comment Auto diff final PT 9.9 INR 1.0 Sodium 143 Potassium 3.7 Chloride 108 H Carbon Dioxide 26.1 Anion Gap 9 BUN 8 Creatinine 0.37 L Estimated GFR Greater than 89 Random Glucose 94 Calcium 8.3 L Phosphorus 4.2 Magnesium 1.8 Total Bilirubin 0.2 AST 14 L ALT 20 Alkaline Phosphatase 200 H Total Protein 5.4 L Albumin 2.5 L TSH 1.090 Free T4 1.37 - Procedures None Assessment and Plan - Assessment (1) Pelvic fracture Code(s): S32.9XXA - Fracture of unspecified parts of lumbosacral spine and pelvis, initial encounter for closed fracture Status: Acute (2) Anemia Code(s): D64.9 - Anemia, unspecified Status: Acute - Plan 1. Pelvic Fracture: S/p fall approx 5mo ago w/ increased pain and difficulty w / ambulation. Pelvic X-ray w/ no acute findings, CT Pelvis w/ probable subacute bilateral sacral fractures and comminuted displaced fracture of left superior and inferior pubic rami, probable hematoma/seroma of left iliopsoas muscle. Ortho consulted by ER physician, will evaluate for possible intervention. NPO after midnight, analgesics/antiemetics as needed. PT for eval/tx-- NO SURGERY PER ORTHO FRONT WHEELED WALKER 2. Anemia: Hgb 9.5, no previous labs for comparison, no active bleeding. Monitor closely. Repeat labs in am. 3. DVT Prophylaxis: Anticoagulation post op We will consult physical therapy and Occupational Therapy Pain control DC TO HOME TODAY OUTPT PT Code Status: FULL Discussed Condition With: RN AND PT AND CM Discharge Planning: DC HOME OUTPT PT
--- NOTE | 2018-02-04 12:31 | P.DS ---
Date of admission: 02/02/18 19:02 Primary care physician: PROVIDER NON STAFF Attending physician on discharge: Suleman Broussard Anticipated date of discharge: 02/04/18 Brief History from admission: This is a 57-year-old female with a PMH of Ovarian Mass s/p Resection who presented to the ER w/ complaints of inability to ambulate due to pelvic pain. States she is from [place], had fall in her kitchen approx 5mo ago however no obvious injury at that time and did not seek medical attention. Moved here to [facility] few days ago, now w/ progressive worsening of hip pain and inability to walk. Denies new injury or trauma. On arrival, BP 148/82, HR 100, O2 sat 100% RA, Afebrile. Hemoglobin 9.5, no previous labs for comparison. Chemistry essentially unremarkable. UA negative for UTI. Pelvis X-ray with no acute findings. Pelvis CT with probable subacute bilateral sacral fractures and comminuted displaced fractures of the left superior and inferior pubic rami, probable hematoma/seroma left iliopsoas muscle. Ortho consulted by ER physician , plan is for possible surgical intervention. DS: Diagnosis - Discharge Diagnosis (1) Pelvic fracture Status: Acute (2) Anemia Status: Acute DS: Medications - Discharge Medications Prescriptions: bisacodyl [Bisac-Evac] 10 mg MI DAILY PRN #15 ea PRN Reason: Severe Consitipation hydrocodone-acetaminophen 2 tab PO Q4H PRN #40 tab PRN Reason: Acute Pain sennosides-docusate sodium [Senna Plus] 2 tab PO BID #120 tab DS: Summary Hospital Course: This is a 57-year-old female with a PMH of Ovarian Mass s/p Resection who presented to the ER w/ complaints of inability to ambulate due to pelvic pain. States she is from [place], had fall in her kitchen approx 5mo ago however no obvious injury at that time and did not seek medical attention. Moved here to [facility] few days ago, now w/ progressive worsening of hip pain and inability to walk. Denies new injury or trauma. On arrival, BP 148/82, HR 100, O2 sat 100% RA, Afebrile. Hemoglobin 9.5, no previous labs for comparison. Chemistry essentially unremarkable. UA negative for UTI. Pelvis X-ray with no acute findings. Pelvis CT with probable subacute bilateral sacral fractures and comminuted displaced fractures of the left superior and inferior pubic rami, probable hematoma/seroma left iliopsoas muscle. Ortho consulted by ER physician , plan is for possible surgical intervention. 7-2 PATIENT STILL COMPLAINING OF PAIN ASKING FOR DILAUDID DW RN AND PT AND CM NEEDS PT AND OT ADJUST PAIN MEDS 7-3 TOLERATING PO PAIN MEDS DW RN AND PT HAS FRONT WHEELED WALKER CAN HAVE OUTPT PT AND PAIN CONTROL checked eforcse recently given rx from [facility] BUT HAS ACUTE PAIN STILL WILL PRESCRIBE RX FOR PAIN - Time Spent with Patient Total time spent providing and/or coordinating discharge services: 34 Greater than 30 minutes - Quality: VTE Deep Vein Thrombosis/Pulmonary Embolism Present on Admission: No Exam Vital signs: Vital Signs 02/03/18 12:55 02/03/18 16:21 02/03/18 20:00 Temperature 98.6 F 98.5 F Pulse Rate 87 85 Respiratory Rate 20 20 16 Blood Pressure 139/74 142/67 H Pulse Oximetry 97 98 02/04/18 00:00 02/04/18 04:00 Temperature 98.4 F 98.4 F Pulse Rate 87 87 Respiratory Rate 16 16 Blood Pressure 165/81 H Pulse Oximetry 96 Intake & Output 02/03/18 02/04/18 02/04/18 18:59 06:59 18:59 Intake Total 480 / 480 1000 / 1000 Balance 480 / 480 1000 / 1000 Intake: IV 1000 / 1000 NS Inj 1,000 ML @ 100 mls/hr IV 1000 / 1000 .CONT .Q10H BLAKE Rx#:[id number] Oral 480 / 480 Other: # Voids 3 Date of Last Bowel Movement 02/02/18 02/02/18 Narrative: GENERAL: Alert and oriented 3 talkative and cooperative asked for Dilaudid by name SKIN: Warm and dry. HEAD: Atraumatic. Normocephalic. EYES: Pupils equal and round. No scleral icterus. No injection or drainage. ENT: No nasal bleeding or discharge. Mucous membranes pink and moist. NECK: Trachea midline. No JVD. CARDIOVASCULAR: Regular rate and rhythm. S1-S2 no S3 or S4 RESPIRATORY: No accessory muscle use. Clear to auscultation. Breath sounds equal bilaterally. GASTROINTESTINAL: Abdomen soft, non-tender, nondistended. Hepatic and splenic margins not palpable. MUSCULOSKELETAL: Extremities without clubbing, cyanosis, or edema. No obvious deformities. NEUROLOGICAL: Awake and alert. No obvious cranial nerve deficits. Motor grossly within normal limits. 4 out of 5 muscle strength in the arms and decreased and bilateral legs. Normal speech. PSYCHIATRIC: Appropriate mood and affect; insight and judgment normal. Results Procedures completed during hospitalization: None Labs on day of discharge: Labs from last 24 hours 02/04/18 02/04/18 02/04/18 06:53 06:53 06:53 WBC RBC Hgb Hct MCV MCH MCHC RDW Plt Count MPV Neut % (Auto) Lymph % (Auto) [place] % (Auto) Eos % (Auto) Baso % (Auto) Neut # (Auto) Lymph # (Auto) [place] # (Auto) Eos # (Auto) Baso # (Auto) WBC Differential Differential Comment PT 9.9 INR 1.0 Sodium 143 Potassium 3.7 Chloride 108 H Carbon Dioxide 26.1 Anion Gap 9 BUN 8 Creatinine 0.37 L Estimated GFR Greater than 89 Random Glucose 94 Hemoglobin A1c Pending Calcium 8.3 L Phosphorus 4.2 Magnesium 1.8 Total Bilirubin 0.2 AST 14 L ALT 20 Alkaline Phosphatase 200 H Total Protein 5.4 L Albumin 2.5 L TSH 1.090 Free T4 1.37 02/04/18 06:53 WBC 6.0 RBC 2.72 L Hgb 8.9 L Hct 26.6 L MCV 98.0 MCH 32.6 MCHC 33.3 RDW 15.6 Plt Count 373 MPV 6.9 L Neut % (Auto) 62.8 Lymph % (Auto) 21.7 [place] % (Auto) 8.8 H Eos % (Auto) 6.0 H Baso % (Auto) 0.7 Neut # (Auto) 3.8 Lymph # (Auto) 1.3 [place] # (Auto) 0.5 Eos # (Auto) 0.4 Baso # (Auto) 0.0 WBC Differential . Differential Comment Auto diff final PT INR Sodium Potassium Chloride Carbon Dioxide Anion Gap BUN Creatinine Estimated GFR Random Glucose Hemoglobin A1c Calcium Phosphorus Magnesium Total Bilirubin AST ALT Alkaline Phosphatase Total Protein Albumin TSH Free T4 - Impressions ITS Impressions Pelvis X-Ray 02/02/18 15:21 CONCLUSION: Negative examination. Pelvis CT 02/02/18 17:08 CONCLUSION: 1. Probable subacute bilateral sacral fractures as well as comminuted displaced fractures of the left superior and inferior pubic rami with ossification of the adjacent soft tissues anteriorly. 2. Probable hematoma/seroma involving left iliacus muscle. 3. Enlarged fibroid uterus. Discharge Plan - Discharge Disposition Patient Disposition: 01 Discharge Home - Discharge Condition Condition: Stable - Discharge Order Discharge Orders: Discharge Order (Routine); Ordered 02/04/18 Ordered By: Suleman Broussard - Discharge Details Anticipated Discharge Date: 02/04/18 Discharge Comment: DC TO HOME - Physicians Team Primary Care Provider: NON STAFF,PROVIDER Attending Provider: Suleman Broussard
[2018-02-04 17:41] LABS: Hemoglobin A1c 4.2 % (4.3-6.0)
[2018-02-05] MEDS: Senna/Docusate Sodium 8.6/50 MG Tablet PO SCH ×2 (08:21→20:05)
[2018-02-05] MEDS ORDERED: Naloxone Inj 0.4 MG/ML Vial IV.PUSH PRN (14:12)
--- NOTE | 2018-02-05 14:15 | P.PNIM ---
Subjective Interval history: Reports that she has no where to go. She still in a lot of pain. Does not want to go home today. She woke up with her boyfriend and has no place to go. She is looking at her friend in [place]. Physical Exam Vital signs: Vital Signs 02/04/18 16:00 02/04/18 19:46 02/04/18 20:12 Temperature 97.3 F L 98.7 F Pulse Rate 64 89 Respiratory Rate 19 18 Blood Pressure 148/86 H 145/83 H Pulse Oximetry 98 96 02/04/18 23:43 02/05/18 04:04 02/05/18 08:00 Temperature 98.0 F 98.5 F Pulse Rate 80 83 Respiratory Rate 18 18 16 Blood Pressure 142/84 H 159/81 H Pulse Oximetry 96 Intake & Output 02/04/18 02/05/18 02/05/18 18:59 06:59 18:59 Intake Total 1000 / 1000 720 / 720 Balance 1000 / 1000 720 / 720 Weight 48.6 kg Intake: IV 1000 / 1000 NS Inj 1,000 ML @ 100 mls/hr IV 1000 / 1000 .CONT .Q10H BLAKE Rx#:[id number] Oral 720 / 720 Other: # Voids 3 Date of Last Bowel Movement 02/02/18 02/04/18 02/05/18 # Bowel Movements 0 Narrative: GENERAL: This is a well-nourished, thin well-developed patient, in no apparent distress. CARDIOVASCULAR: Regular rate and rhythm without murmurs, gallops, or rubs. RESPIRATORY: Clear to auscultation. Breath sounds equal bilaterally. No wheezes , rales, or rhonchi. \ MUSCULOSKELETAL: Extremities without clubbing, cyanosis, or edema. NEURO: Alert & Oriented x4 to person, place, time, situation. Moves all ext x4 Results - Labs CBC & Chem 7: 02/04/18 06:53 02/04/18 06:53 Laboratory Results - last 24 hr 02/04/18 02/04/18 06:53 21:59 POC Glucose 206 H Hemoglobin A1c 4.2 L - Procedures None Assessment and Plan - Assessment (1) Pelvic fracture Code(s): S32.9XXA - Fracture of unspecified parts of lumbosacral spine and pelvis, initial encounter for closed fracture Status: Acute (2) Anemia Code(s): D64.9 - Anemia, unspecified Status: Acute - Plan 1. Subacute Pelvic Fracture with probable hematoma seroma of left psoas muscle : S/p fall approx 5mo ago w/ increased pain and difficulty w/ ambulation. Pelvic X-ray w/ no acute findings, CT Pelvis w/ probable subacute bilateral sacral fractures and comminuted displaced fracture of left superior and inferior pubic rami, probable hematoma/seroma of left iliopsoas muscle. Ortho consulted by ER physician, will evaluate for possible intervention. Change pain medication from [place] to Percocet chronic 2. Anemia: Hgb 9.5, no previous labs for comparison, no active bleeding. Monitor closely. Repeat labs in am. 3. DVT Prophylaxis: Xarelto Discharge Planning: Patient refused to be discharged due to continued pain Discharge planning with wheeled front wheel walker
[2018-02-05] MEDS: oxyCODONE/Acetaminophen 10/325 Tablet PO PRN ×2 (14:45→21:30)
[2018-02-05] MEDS: Rivaroxaban 10 MG Tablet PO SCH (14:48)
[2018-02-06] MEDS: oxyCODONE/Acetaminophen 10/325 Tablet PO PRN ×3 (05:44→19:54)
[2018-02-06] MEDS: Senna/Docusate Sodium 8.6/50 MG Tablet PO SCH ×2 (08:11→20:00)
[2018-02-06] MEDS: Rivaroxaban 10 MG Tablet PO SCH (08:11)
--- NOTE | 2018-02-06 09:19 | P.PNIM ---
Subjective Interval history: Patient still reporting a 10 out of 10 in pain intensity with her her pelvis. She states that she is not trying to milk the system. Physical Exam Vital signs: Vital Signs 02/05/18 12:00 02/05/18 16:00 02/05/18 20:29 Temperature 98.8 F 98.7 F 97.9 F Pulse Rate 95 H 84 Respiratory Rate 16 16 18 Blood Pressure 133/71 135/79 135/78 Pulse Oximetry 97 96 95 02/05/18 23:24 02/06/18 03:55 02/06/18 08:00 Temperature 97.6 F 97.9 F 98.0 F Pulse Rate 89 101 H 98 H Respiratory Rate 18 18 17 Blood Pressure 162/81 H 160/88 H 151/79 H Pulse Oximetry 98 97 97 Intake & Output 02/05/18 02/06/18 02/06/18 18:59 06:59 18:59 Intake Total 2760 / 2760 480 / 480 Balance 2760 / 2760 480 / 480 Weight 48.6 kg Intake: Oral 2760 / 2760 480 / 480 Other: # Voids 4 Date of Last Bowel Movement 02/05/18 02/06/18 02/05/18 # Bowel Movements 1 Narrative: GENERAL: This is a well-nourished, thin well-developed patient, in no apparent distress. CARDIOVASCULAR: Regular rate and rhythm RESPIRATORY: Clear to auscultation. Breath sounds equal bilaterally. No wheezes , rales, or rhonchi. MUSCULOSKELETAL: Extremities without clubbing, cyanosis, or edema. NEURO: Alert & Oriented x4 to person, place, time, situation. Moves all ext x4 Results - Labs CBC & Chem 7: 02/04/18 06:53 02/04/18 06:53 - Procedures None Assessment and Plan - Assessment (1) Pelvic fracture Code(s): S32.9XXA - Fracture of unspecified parts of lumbosacral spine and pelvis, initial encounter for closed fracture Status: Acute (2) Anemia Code(s): D64.9 - Anemia, unspecified Status: Acute - Plan 1. Subacute closed displaced pelvic Fracture with probable hematoma seroma of left psoas muscle: S/p fall approx 5mo ago w/ increased pain and difficulty w/ ambulation. Pelvic X-ray w/ no acute findings, CT Pelvis w/ probable subacute bilateral sacral fractures and comminuted displaced fracture of left superior and inferior pubic rami, probable hematoma/seroma of left iliopsoas muscle. Ortho consulted and recommended conservative management and nonsurgical. Continue pain medication with Percocet. Add gabapentin to the regimen. 2. Anemia: Hemoglobin has remained stable, last hemoglobin 8.9 3. DVT Prophylaxis: Xarelto Discharge Planning: Patient refused to be discharged due to continued pain Discharge planning with wheeled front wheel walker (1) Pelvic fracture Qualifiers: Encounter type: initial encounter Pelvic bone location: pubis Fracture type : closed Fracture alignment: displaced Laterality: left Qualified Code(s): S32.502A - Unspecified fracture of left pubis, initial encounter for closed fracture
[2018-02-06] MEDS: Gabapentin 100 MG Capsule PO SCH ×2 (13:01→17:05)
[2018-02-07] MEDS: Rivaroxaban 10 MG Tablet PO SCH (09:03)
[2018-02-07] MEDS: Senna/Docusate Sodium 8.6/50 MG Tablet PO SCH ×2 (09:03→21:32)
[2018-02-07] MEDS: Gabapentin 100 MG Capsule PO SCH (09:03)
[2018-02-07] MEDS: oxyCODONE/Acetaminophen 10/325 Tablet PO PRN ×3 (09:03→22:40)
--- NOTE | 2018-02-07 09:22 | P.PNIM ---
Subjective Interval history: Patient states that she plans to be going home on Saturday. She is still waiting for her appeal. She states that there is a friend from [place] will come help her travel. She states that her pain is better with gabapentin Physical Exam Vital signs: Vital Signs 02/06/18 12:00 02/06/18 13:31 02/06/18 16:00 Temperature 98.1 F 98.0 F Pulse Rate 101 H 99 H Respiratory Rate 19 18 17 Blood Pressure 136/84 150/87 H Pulse Oximetry 94 L 96 02/06/18 20:15 02/07/18 00:00 02/07/18 04:00 Temperature 98.4 F 98.2 F 98.0 F Pulse Rate 97 H 74 88 Respiratory Rate 16 16 16 Blood Pressure 138/81 136/71 133/73 Pulse Oximetry 95 97 97 02/07/18 08:00 Temperature 98.3 F Pulse Rate 101 H Respiratory Rate 18 Blood Pressure 151/76 H Pulse Oximetry 95 Intake & Output 02/06/18 02/07/18 02/07/18 18:59 06:59 18:59 Intake Total 1100 / 1100 720 / 720 Balance 1100 / 1100 720 / 720 Intake: Oral 1100 / 1100 720 / 720 Other: # Voids 4 2 Date of Last Bowel Movement 02/05/18 02/05/18 # Bowel Movements 0 Narrative: GENERAL: This is a well-nourished, thin well-developed patient, in no apparent distress. CARDIOVASCULAR: Regular rate and rhythm Lungs: Overall clear to auscultation bilaterally no wheezes, rales, or rhonchi. MUSCULOSKELETAL: Extremities without clubbing, cyanosis, or edema. NEURO: Alert & Oriented x4 to person, place, time, situation. Moves all ext x4 Results - Labs CBC & Chem 7: 02/04/18 06:53 02/04/18 06:53 - Procedures None Assessment and Plan - Assessment (1) Pelvic fracture Code(s): S32.9XXA - Fracture of unspecified parts of lumbosacral spine and pelvis, initial encounter for closed fracture Status: Acute (2) Anemia Code(s): D64.9 - Anemia, unspecified Status: Acute - Plan 1. Subacute closed displaced pelvic Fracture with probable hematoma seroma of left psoas muscle: S/p fall approx 5mo ago w/ increased pain and difficulty w/ ambulation. Pelvic X-ray w/ no acute findings, CT Pelvis w/ probable subacute bilateral sacral fractures and comminuted displaced fracture of left superior and inferior pubic rami, probable hematoma/seroma of left iliopsoas muscle. Ortho consulted and recommended conservative management and nonsurgical. Continue pain medication with Percocet. Add gabapentin to the regimen which has improved the pain, will increase dosing today to 300 3 times daily. 2. Anemia: Hemoglobin has remained stable, last hemoglobin 8.9 3. DVT Prophylaxis: Xarelto Discharge Planning: Patient refused previously to be discharged due to continued pain, now she states that she will be leaving on Saturday Discharge planning with wheeled front wheel walker (1) Pelvic fracture Qualifiers: Encounter type: initial encounter Pelvic bone location: pubis Fracture type : closed Fracture alignment: displaced Laterality: left Qualified Code(s): S32.502A - Unspecified fracture of left pubis, initial encounter for closed fracture
[2018-02-07] MEDS: Gabapentin 300 MG Capsule PO SCH ×2 (13:57→17:25)
--- NOTE | 2018-02-07 20:59 | P.PN ---
Subjective Interval history: not seen Physical Exam Vital signs: Vital Signs 02/07/18 00:00 02/07/18 04:00 02/07/18 08:00 Temperature 98.2 F 98.0 F 98.3 F Pulse Rate 74 88 101 H Respiratory Rate 16 16 18 Blood Pressure 136/71 133/73 151/76 H Pulse Oximetry 97 97 95 02/07/18 09:33 02/07/18 12:00 02/07/18 16:00 Temperature 98.6 F 97.2 F L Pulse Rate 113 H 92 H Respiratory Rate 16 17 18 Blood Pressure 138/69 122/68 Pulse Oximetry 97 98 02/07/18 17:09 Temperature Pulse Rate Respiratory Rate 18 Blood Pressure Pulse Oximetry Intake & Output 02/07/18 02/07/18 02/08/18 06:59 18:59 06:59 Intake Total 720 / 720 1200 / 1200 Balance 720 / 720 1200 / 1200 Intake: Oral 720 / 720 1200 / 1200 Other: # Voids 2 4 Date of Last Bowel Movement 02/05/18 02/07/18 # Bowel Movements 0 1 Results - Labs CBC & Chem 7: 02/04/18 06:53 02/04/18 06:53 - Imaging ITS Impressions Pelvis X-Ray 02/02/18 15:21 CONCLUSION: Negative examination. Pelvis CT 02/02/18 17:08 CONCLUSION: 1. Probable subacute bilateral sacral fractures as well as comminuted displaced fractures of the left superior and inferior pubic rami with ossification of the adjacent soft tissues anteriorly. 2. Probable hematoma/seroma involving left iliacus muscle. 3. Enlarged fibroid uterus. - Procedures None Assessment and Plan - Assessment (1) Pelvic fracture Code(s): S32.9XXA - Fracture of unspecified parts of lumbosacral spine and pelvis, initial encounter for closed fracture Status: Acute (2) Anemia Code(s): D64.9 - Anemia, unspecified Status: Acute - Plan 1. Subacute closed displaced pelvic Fracture with probable hematoma seroma of left psoas muscle: S/p fall approx 5mo ago w/ increased pain and difficulty w/ ambulation. Pelvic X-ray w/ no acute findings, CT Pelvis w/ probable subacute bilateral sacral fractures and comminuted displaced fracture of left superior and inferior pubic rami, probable hematoma/seroma of left iliopsoas muscle. Ortho consulted and recommended conservative management and nonsurgical. Continue pain medication with Percocet. Add gabapentin to the regimen which has improved the pain, will increase dosing today to 300 3 times daily. 2. Anemia: Hemoglobin has remained stable, last hemoglobin 8.9 3. DVT Prophylaxis: Xarelto Discharge Planning: Patient refused previously to be discharged due to continued pain, now she states that she will be leaving on Saturday Discharge planning with wheeled front wheel walker (1) Pelvic fracture Qualifiers: Encounter type: initial encounter Pelvic bone location: pubis Fracture type : closed Fracture alignment: displaced Laterality: left Qualified Code(s): S32.502A - Unspecified fracture of left pubis, initial encounter for closed fracture
[2018-02-08] MEDS: Senna/Docusate Sodium 8.6/50 MG Tablet PO SCH ×2 (09:20→20:08)
[2018-02-08] MEDS: Gabapentin 300 MG Capsule PO SCH ×3 (09:21→18:47)
[2018-02-08] MEDS: Rivaroxaban 10 MG Tablet PO SCH (09:21)
[2018-02-08] MEDS: oxyCODONE/Acetaminophen 10/325 Tablet PO PRN ×3 (09:21→22:18)
--- NOTE | 2018-02-08 17:30 | P.PN ---
Subjective Interval history: Follow-up pelvic fracture. States she hurts when she is weightbearing medications are helping. Physical Exam Vital signs: Vital Signs 02/07/18 20:00 02/08/18 00:00 02/08/18 04:00 Temperature 98.6 F 98.4 F 98.1 F Pulse Rate 96 H 88 88 Respiratory Rate 18 18 18 Blood Pressure 136/67 113/53 L 137/64 Pulse Oximetry 98 98 97 02/08/18 08:00 02/08/18 12:00 Temperature 98.6 F 99.5 F Pulse Rate 110 H 100 H Respiratory Rate 15 12 Blood Pressure 154/84 H 144/74 H Pulse Oximetry 97 96 Intake & Output 02/07/18 02/08/18 02/08/18 18:59 06:59 18:59 Intake Total 1200 / 1200 840 / 840 Balance 1200 / 1200 840 / 840 Intake: Oral 1200 / 1200 840 / 840 Other: # Voids 4 3 Date of Last Bowel Movement 02/07/18 02/07/18 02/07/18 # Bowel Movements 1 2 Narrative: GENERAL: This is a well-nourished, thin well-developed patient, in no apparent distress. Skin is warm no lesions CARDIOVASCULAR: Regular rate and rhythm Lungs: Overall clear to auscultation bilaterally no wheezes, rales, or rhonchi. MUSCULOSKELETAL: Extremities without clubbing, cyanosis, or edema. NEURO: Alert & Oriented x4 to person, place, time, situation. Moves all ext x4 Results - Labs CBC & Chem 7: 02/04/18 06:53 02/04/18 06:53 - Imaging ITS Impressions Pelvis X-Ray 02/02/18 15:21 CONCLUSION: Negative examination. Pelvis CT 02/02/18 17:08 CONCLUSION: 1. Probable subacute bilateral sacral fractures as well as comminuted displaced fractures of the left superior and inferior pubic rami with ossification of the adjacent soft tissues anteriorly. 2. Probable hematoma/seroma involving left iliacus muscle. 3. Enlarged fibroid uterus. - Procedures None Assessment and Plan - Assessment (1) Pelvic fracture Code(s): S32.9XXA - Fracture of unspecified parts of lumbosacral spine and pelvis, initial encounter for closed fracture Status: Acute (2) Anemia Code(s): D64.9 - Anemia, unspecified Status: Acute - Plan 1. Subacute closed displaced pelvic Fracture with probable hematoma seroma of left psoas muscle: S/p fall approx 5mo ago w/ increased pain and difficulty w/ ambulation. Pelvic X-ray w/ no acute findings, CT Pelvis w/ probable subacute bilateral sacral fractures and comminuted displaced fracture of left superior and inferior pubic rami, probable hematoma/seroma of left iliopsoas muscle. Ortho consulted and recommended conservative management and nonsurgical. Continue pain medication with Percocet. Counseled regarding narcotic Continue gabapentin 300 3 times daily. 2. Anemia: Hemoglobin has remained stable, last hemoglobin 8.9 3. DVT Prophylaxis: Xarelto Discharge Planning: Patient refused previously to be discharged due to continued pain, now she states that she will be leaving on Saturday Discharge planning with wheeled front wheel walker (1) Pelvic fracture Qualifiers: Encounter type: initial encounter Pelvic bone location: pubis Fracture type : closed Fracture alignment: displaced Laterality: left Qualified Code(s): S32.502A - Unspecified fracture of left pubis, initial encounter for closed fracture
[2018-02-09] MEDS: oxyCODONE/Acetaminophen 10/325 Tablet PO PRN ×3 (06:52→19:20)
[2018-02-09] MEDS: Gabapentin 300 MG Capsule PO SCH ×2 (08:30→13:16)
[2018-02-09] MEDS: Rivaroxaban 10 MG Tablet PO SCH (08:31)
[2018-02-09] MEDS: Senna/Docusate Sodium 8.6/50 MG Tablet PO SCH ×2 (13:16→20:13)
--- NOTE | 2018-02-09 16:13 | P.PN ---
Subjective Interval history: Follow-up pelvic pain. Requesting stronger pain medicine advised I will increase Neurontin aware of possible side effects. Physical Exam Vital signs: Vital Signs 02/08/18 20:00 02/09/18 00:00 02/09/18 04:00 Temperature 97.9 F 98 F 98.1 F Pulse Rate 99 H 89 99 H Respiratory Rate 18 18 18 Blood Pressure 142/80 H 123/67 124/64 Pulse Oximetry 98 98 95 02/09/18 08:00 02/09/18 12:00 Temperature 98.2 F 97.1 F L Pulse Rate 93 H 100 H Respiratory Rate 12 18 Blood Pressure 126/60 144/70 H Pulse Oximetry 94 L 97 Intake & Output 02/08/18 02/09/18 02/09/18 18:59 06:59 18:59 Intake Total 960 / 960 360 / 360 Balance 960 / 960 360 / 360 Weight 48.5 kg Intake: Oral 960 / 960 360 / 360 Other: # Voids 3 0 Date of Last Bowel Movement 02/07/18 02/08/18 # Bowel Movements 1 Narrative: GENERAL: This is a well-nourished, thin well-developed patient, in no apparent distress. Skin is warm no lesions CARDIOVASCULAR: Regular rate and rhythm Lungs: Overall clear to auscultation bilaterally no wheezes MUSCULOSKELETAL: Extremities without clubbing, cyanosis, or edema. NEURO: Alert & Oriented x4 to person, place, time, situation. Moves all ext x4 Results - Labs CBC & Chem 7: 02/04/18 06:53 02/04/18 06:53 Assessment and Plan - Assessment (1) Pelvic fracture Code(s): S32.9XXA - Fracture of unspecified parts of lumbosacral spine and pelvis, initial encounter for closed fracture Status: Acute (2) Anemia Code(s): D64.9 - Anemia, unspecified Status: Acute - Plan 1. Subacute closed displaced pelvic Fracture with probable hematoma seroma of left psoas muscle: S/p fall approx 5mo ago w/ increased pain and difficulty w/ ambulation. Pelvic X-ray w/ no acute findings, CT Pelvis w/ probable subacute bilateral sacral fractures and comminuted displaced fracture of left superior and inferior pubic rami, probable hematoma/seroma of left iliopsoas muscle. Ortho consulted and recommended conservative management and nonsurgical. Continue pain medication with Percocet. Counseled regarding narcotic Increase gabapentin to 450 mg 3 times daily. 2. Anemia: Hemoglobin has remained stable, last hemoglobin 8.9. No acute blood loss 3. DVT Prophylaxis: Xarelto Discharge Planning: Patient refused previously to be discharged due to continued pain, now she states that she will be leaving on Saturday Discharge planning with wheeled front wheel walker (1) Pelvic fracture Qualifiers: Encounter type: initial encounter Pelvic bone location: pubis Fracture type : closed Fracture alignment: displaced Laterality: left Qualified Code(s): S32.502A - Unspecified fracture of left pubis, initial encounter for closed fracture
[2018-02-09] MEDS: Gabapentin Liq 250 MG/5 ML UDC PO SCH (18:10)
[2018-02-10] MEDS: oxyCODONE/Acetaminophen 10/325 Tablet PO PRN (05:37)
[2018-02-10] MEDS: Gabapentin Liq 250 MG/5 ML UDC PO SCH (08:51)
[2018-02-10] MEDS: Senna/Docusate Sodium 8.6/50 MG Tablet PO SCH (08:53)
[2018-02-10] MEDS: Rivaroxaban 10 MG Tablet PO SCH (08:53)
--- NOTE | 2018-02-10 11:05 | P.DS ---
Date of admission: 02/02/18 19:02 Primary care physician: PROVIDER NON STAFF Anticipated date of discharge: 02/04/18 Brief History from admission: This is a 57-year-old female with a PMH of Ovarian Mass s/p Resection who presented to the ER w/ complaints of inability to ambulate due to pelvic pain. States she is from [place], had fall in her kitchen approx 5mo ago however no obvious injury at that time and did not seek medical attention. Moved here to [facility] few days ago, now w/ progressive worsening of hip pain and inability to walk. Denies new injury or trauma. On arrival, BP 148/82, HR 100, O2 sat 100% RA, Afebrile. Hemoglobin 9.5, no previous labs for comparison. Chemistry essentially unremarkable. UA negative for UTI. Pelvis X-ray with no acute findings. Pelvis CT with probable subacute bilateral sacral fractures and comminuted displaced fractures of the left superior and inferior pubic rami, probable hematoma/seroma left iliopsoas muscle. Ortho consulted by ER physician , plan is for possible surgical intervention. DS: Diagnosis - Discharge Diagnosis (1) Pelvic fracture Status: Acute (2) Anemia Status: Acute DS: Medications - Discharge Medications Prescriptions: gabapentin [Neurontin] 450 mg PO TID #900 ml rivaroxaban [Xarelto] 10 mg PO DAILY #30 tab DS: Summary Hospital Course: 1. Subacute closed displaced pelvic Fracture with probable hematoma seroma of left psoas muscle: S/p fall approx 5mo ago w/ increased pain and difficulty w/ ambulation. Pelvic X-ray w/ no acute findings, CT Pelvis w/ probable subacute bilateral sacral fractures and comminuted displaced fracture of left superior and inferior pubic rami, probable hematoma/seroma of left iliopsoas muscle. Ortho consulted and recommended conservative management and nonsurgical. Continue pain medication with Percocet. Counseled regarding narcotic Increase gabapentin to 450 mg 3 times daily. 2. Anemia: Hemoglobin has remained stable, last hemoglobin 8.9. No acute blood loss 3. DVT Prophylaxis: Xarelto Discharge Planning: Patient refused previously to be discharged due to continued pain, now she states that she will be leaving on Saturday today Discharge planning with wheeled front wheel walker Lortab #[id number] Broussard. Eforcse checked - Time Spent with Patient Total time spent providing and/or coordinating discharge services: Greater than 30 minutes - Quality: VTE Deep Vein Thrombosis/Pulmonary Embolism Present on Admission: No Exam Vital signs: Vital Signs 02/09/18 12:00 02/09/18 16:00 02/09/18 20:00 Temperature 97.1 F L 98.5 F 99 F Pulse Rate 100 H 89 104 H Respiratory Rate 18 18 18 Blood Pressure 144/70 H 147/76 H 144/67 H Pulse Oximetry 97 99 97 02/10/18 00:00 02/10/18 04:00 02/10/18 08:00 Temperature 98.5 F 99.1 F 99.0 F Pulse Rate 85 95 H 95 H Respiratory Rate 18 18 20 Blood Pressure 129/60 136/70 133/75 Pulse Oximetry 98 97 98 Intake & Output 02/09/18 02/10/18 02/10/18 18:59 06:59 18:59 Intake Total 450 / 450 Balance 450 / 450 Weight 48.5 kg Intake: Oral 450 / 450 Other: # Voids 3 3 Date of Last Bowel Movement 02/08/18 02/08/18 # Bowel Movements 1 Narrative: GENERAL: This is a well-nourished, thin well-developed patient, in no apparent distress. Skin is warm no lesions CARDIOVASCULAR: Regular rate and rhythm Lungs: Overall clear to auscultation bilaterally no wheezes MUSCULOSKELETAL: Extremities without clubbing, cyanosis, or edema. NEURO: Alert & Oriented x4 to person, place, time, situation. Moves all ext x4 Results Procedures completed during hospitalization: none - Impressions ITS Impressions Pelvis X-Ray 02/02/18 15:21 CONCLUSION: Negative examination. Pelvis CT 02/02/18 17:08 CONCLUSION: 1. Probable subacute bilateral sacral fractures as well as comminuted displaced fractures of the left superior and inferior pubic rami with ossification of the adjacent soft tissues anteriorly. 2. Probable hematoma/seroma involving left iliacus muscle. 3. Enlarged fibroid uterus. Discharge Plan - Discharge Disposition Patient Disposition: Discharge Home - Discharge Condition Condition: Stable - Discharge Order Discharge Orders: Discharge Order (Routine); Ordered 02/04/18 Ordered By: Suleman Broussard - Discharge Details Anticipated Discharge Date: 02/04/18 Discharge Comment: DC TO HOME - Physicians Team Primary Care Provider: NON STAFF,PROVIDER Attending Provider: Warren Salgado Other Providers: ; James Russ MD
== END 2018-02-10 10:32 | disposition home or self-care (01) ==
LOC: NEPC 12:11 → NEDA 19:02 → N06 20:30
PROVIDERS: ADMIT Internal Medicine; ATTEND Internal Medicine